=== PATIENT | female | born 1980 | race Caucasian/White ===

== ENCOUNTER 2020-03-16 09:01 | Day surgery (SDC) | payer MEDICAID ==
[~2020-03-16] VITALS: Ht 167.6 cm; Wt 170.4 kg
[2020-03-16] MEDS ORDERED: fentaNYL/PF 50MCG/1 ML 2ML syringe ONE (09:13)
[2020-03-16] MEDS ORDERED: LIDOcaine Viscous 15ml cup ONE (09:14)
[2020-03-16] MEDS ORDERED: MIDAZolam 5mg/5ml vial ONE (09:14)
[2020-03-16 09:15] VITALS: BP 159/103
[2020-03-16] MEDS ORDERED: ATOR40TA PO (09:22)
[2020-03-16] MEDS ORDERED: DIAMOX PO (09:27)
[2020-03-16] MEDS ORDERED: METF500T PO (09:27)
[2020-03-16] MEDS ORDERED: CITA-311 PO (09:28)
[2020-03-16] MEDS ORDERED: MULT-1085 PO (09:28)
[2020-03-16] MEDS ORDERED: OMEGA 3 PO (09:29)
[2020-03-16] MEDS ORDERED: VITAMIN D 3 PO (09:31)
[2020-03-16 10:50] VITALS: BP 136/74
[2020-03-16 11:00] VITALS: BP 134/75
[2020-03-16 11:10] VITALS: BP 145/76
[2020-03-16 11:20] VITALS: BP 138/77
== END 2020-03-16 11:35 | disposition home or self-care (01) ==
LOC: GI LAB 09:01
PROVIDERS: ATTEND Internal Medicine Gastroenterology
DX: Z01.818 Encounter for other preprocedural examination (principal); K29.70 Gastritis, unspecified, without bleeding; E66.01 Morbid (severe) obesity due to excess calories
CPT/HCPCS: 43239; J2250; J3010; J7040; 99152; A4620